=== PATIENT | male | born 1990 | race Caucasian/White ===

== ENCOUNTER 2017-02-16 11:20 | Emergency (ER) | payer OTHER ==
[~2017-02-16] VITALS: Ht 175.3 cm; Wt 68.0 kg
== END 2017-02-16 13:45 | disposition home or self-care (01) ==
LOC: CFTX 11:20 → CED 11:20 → CFTX 12:56
DX: L05.01 Pilonidal cyst with abscess (principal)
CPT/HCPCS: 10080; 99283